=== PATIENT | female | born 1985 | race Caucasian/White ===

== ENCOUNTER 2019-06-04 11:55 | Emergency (ER) | payer SELFPAY ==
[~2019-06-04] VITALS: Ht 160 cm; Wt 93.0 kg
--- NOTE | 2019-06-04 12:30 | NUR ---
ED Nurse Note: Pt is nonverbal and with her caregiver. Pt c/o right eye swelling x couple of days.
--- NOTE | 2019-06-04 12:43 | Emergency Room Report ---
History of Present Illness General Chief Complaint: Eye Problems Source: Caregiver Present Illness HPI 33 Yo Female presents to the ED brought by caregiver c/o : left eye redness, discharge, and increased lacrimation x [ ] days itching 3/10 in severity. Denies Discharge, Redness, Increased tearing. HPI and ROS are limited due to pt. Mental retardation. Allergies: Coded Allergies: No Known Allergies (Unverified , 06/04/19) Patient History Past Medical History: see triage record, other - MR Past Surgical History: none, other Pertinent Family History: none Last Menstrual Period: currently on her period Now: No Immunizations: UTD Reviewed Nursing Documentation: PMH: Agreed; PSxH: Agreed Review of Systems All Other Systems: limited Physical Exam Vital Signs Date Time Temp Pulse Resp B/P (MAP) Pulse Ox O2 Delivery O2 Flow Rate FiO2 06/04/19 12:24 98.8 110 16 97 Room Air Sp02 EP Interpretation: reviewed, normal General Appearance: no apparent distress, alert, GCS 15, non-toxic Head: normocephalic, atraumatic Eyes: bilateral eye normal inspection, bilateral eye PERRL, bilateral eye EOMI , bilateral eye visual acuity - pt. unable to complete due to MR, bilateral eye other - Left lid swelling upper and lower, no erythema, no warmth, no D/C, no injection. no obvious visible Fb in the Eye ENT: hearing grossly normal, normal voice Neck: full range of motion Respiratory: lungs clear, normal breath sounds, speaking full sentences Cardiovascular #1: regular rate, rhythm Musculoskeletal: back normal, gait/station normal, normal range of motion, non- tender Neurologic: alert, oriented x3, responsive, motor strength/tone normal, sensory intact, normal gait, speech normal, grossly normal Psychiatric: judgement/insight normal, other - MR Skin: other - Swelling without erythema or warmth to the left eyelids. Medical Decision Making PA Attestation Dr. Vallejo Is my supervising Physician whom patient management has been discussed with. Diagnostic Impression: Primary Impression: Allergic eye reaction ER Course 33 Yo Female presents to the ED brought by caregiver c/o : left eye redness, discharge, and increased lacrimation x [ ] days itching 3/10 in severity. Denies Discharge, Redness, Increased tearing. HPI and ROS are limited due to pt. Mental retardation. Ddx considered but are not limited to: corneal abrasion, acute glaucoma, globe rupture, FB, Corneal Ulcer, conjunctivitis. Iridis, orbital cellulitis,keratitis , sinusitis Vital signs: are WNL, pt. is afebrile H&PE are most consistent with: allergic eye rxn. ORDERS: none at this time. ED INTERVENTIONS: none at this time. Due to pt. being MR and not following directions/ constantly touching her eye, will d/c with rx for abx ointment incase of secondary bacterial infection as this pt. is at higher risk of having one. DISCHARGE: At this time pt. is stable for d/c to home. Will provide printed patient care instructions, and any necessary prescriptions. Care plan and follow up instructions have been discussed with the patient prior to discharge. Last Vital Signs Date Time Temp Pulse Resp B/P (MAP) Pulse Ox O2 Delivery O2 Flow Rate FiO2 06/04/19 12:24 98.8 110 16 97 Room Air Disposition: HOME, SELF-CARE Condition: Stable Scripts Erythromycin Base (ERYTHROMYCIN*) 3.5 Gm Oint...g. 1 APPLIC LEFT EYE BID, #3.5 GM 0 Refills Prov: Alyson Ellison 06/04/19 Diphenhydramine Hcl* (BENADRYL ALLERGY*) 12.5 Mg/5 Ml Liquid 25 MG ORAL Q6H PRN for Itching, #120 ML 0 Refills Prov: Alyson Ellison 06/04/19 Olopatadine Hcl (PATADAY) 2.5 Ml Drops 1 DRP OP DAILY, #2.5 ML Prov: Alyson Ellison 06/04/19 Patient Instructions: Allergies, [id number] Additional Instructions: Take medications as directed. Follow up with a Primary Care Provider in 3 days, even if your symptoms have resolved. --Please review list of primary care clinics, if you do not already have a primary care provider Return sooner to ED if new symptoms occur, or current symptoms become worse. - Please note that this Emergency Department Report was dictated using [employer] technology software, occasionally this can lead to erroneous entry secondary to interpretation by the dictation equipment. Alyson Ellison Jun 04, 2019 12:43
[2019-06-04] MEDS ORDERED: BENADRYL A12.5 MG/5 ORAL (12:45)
[2019-06-04] MEDS ORDERED: DiphenhydrAMINE 25mg/10ml Elixir ORAL ONE (12:45)
[2019-06-04] MEDS ORDERED: PATADAY2.5 ML OP (12:45)
[2019-06-04] MEDS ORDERED: ERYTHROMYCIN3.5 GM LEFT EYE (12:45)
--- NOTE | 2019-06-04 13:13 | NUR ---
ER DISCHARGE NOTE: Patient is cleared to be discharged per ERMD, pt is aox4, on room air, with stable vital signs. pt was given dc and prescription instructions, pt was able to verbalize understanding, pt id band and iv site removed without complications. pt is able to ambulate with steady gait. pt took all belongings. pt with caregiver.
== END 2019-06-04 13:13 | disposition home or self-care (01) ==
LOC: EMR 12:50
DX: T78.40XA Allergy, unspecified, initial encounter (principal); H57.9 Unspecified disorder of eye and adnexa; F79 Unspecified intellectual disabilities; X58.XXXA Exposure to other specified factors, initial encounter
CPT/HCPCS: 99282